=== PATIENT | male | born 1980 | race Caucasian/White ===

== ENCOUNTER 2020-09-01 22:01 | Emergency (ER) | payer SELFPAY ==
[~2020-09-01] VITALS: Ht 182.9 cm; Wt 113.4 kg
[2020-09-01 22:16] VITALS: BP 158/98
[2020-09-01 22:40] LABS: AMPHETAMINE SCREEN, URINE POSITIVE (NEGATIVE); BARBITURATE SCREEN URINE NEGATIVE (NEGATIVE); BENZODIAZEPINES SCREEN URINE NEGATIVE (NEGATIVE); CANNABINOID SCREEN, URINE NEGATIVE (NEGATIVE); COCAINE SCREEN URINE NEGATIVE (NEGATIVE); METHADONE STAT NEGATIVE (NEGATIVE); METHAMPHETAMINE SCREEN URINE S POSITIVE (NEGATIVE); OPIATE SCREEN URINE NEGATIVE (NEGATIVE); OXYCODONE STAT NEGATIVE (NEGATIVE); PROPOXYPHENE STAT NEGATIVE (NEGATIVE); TRICYCLIC ANTIDEPRESSANTS SCRE NEGATIVE (NEGATIVE)
--- NOTE | 2020-09-01 23:03 | ED Psychosocial ---
General Chief Complaint: Substance Abuse Stated Complaint: DRUG REACTION Nursing Triage Note: PT TO ROOM FS04 VIA [facility] WITH C/O USING METH AND IT MADE HIM FEEL DIFFERENT THAN THE METH HE USUALLY USES. Source: patient Exam Limitations: no limitations History of Present Illness Date Seen by Provider: September 01, 2020 Time Seen by Provider: 22:01 Initial Comments Patient is a 40-year-old male who presents with paresthesias after ingesting methamphetamines. Patient states he feels drugged and states his symptoms are different than prior symptoms. Denies headache blurred vision, chest pain palpitations, shortness of breath. Patient ingested methamphetamines 2 hours prior to ED arrival. No HI, SI, hallucinations paranoia. No other acute symptoms or complaints Timing/Duration: just prior to arrival Severity: moderate Associated Symptoms: other Allergies and Home Medications Allergies Coded Allergies: No Known Allergies (Verified Allergy, Unknown, 09/01/20) Patient Home Medication List Home Medication List Reviewed: Yes Review of Systems Constitutional: see HPI EENTM: see HPI Respiratory: see HPI Cardiovascular: see HPI Gastrointestinal: see HPI Genitourinary: see HPI Skin: see HPI Psychiatric/Neurological: See HPI All Other Systems Reviewed Negative Unless Noted: Yes Past Yoyctje-Cwyczg-Fnajru Hx Past Med/Social Hx: Reviewed Nursing Past Med/Soc Hx Patient Social History Alcohol Use: Denies Use Drug of Choice: METH Smoking Status: Current Everyday Smoker Type Used: Cigarettes 2nd Hand Smoke Exposure: Yes Recent Infectious Disease Expo: No Recent Hopitalizations: No Seasonal Allergies Seasonal Allergies: No Past Medical History Surgeries: Yes (CARPAL TUNNEL) Appendectomy Respiratory: No Cardiac: No Neurological: No Genitourinary: No Gastrointestinal: No Musculoskeletal: No Endocrine: No HEENT: No Cancer: No Psychosocial: No Integumentary: No Blood Disorders: No Physical Exam Vital Signs - First Documented 09/01/20 22:16 Temp 36.7 Pulse 100 Resp 19 B/P (MAP) 158/98 (118) O2 Delivery Room Air Capillary Refill : Less Than 3 Seconds Height, Weight, BMI Height: '" Weight: lbs. oz. kg; 33.00 BMI Method: General Appearance: WD/WN, no apparent distress, other HEENT: PERRL/EOMI, TMs normal, other Neck: full range of motion Respiratory: chest non-tender, lungs clear Cardiovascular: normal peripheral pulses, regular rate, rhythm Gastrointestinal: non tender, soft Extremities: non-tender Neurologic/Psychiatric: corrosion engineer II-XII nml as tested, no motor/sensory deficits, alert, oriented x 3 Thoughts/Hallucinations: no apparent hallucination, auditory hallucinations Lymphatic: no adenopathy Progress/Results/Core Measures Results/Orders Lab Results Laboratory Tests Test 09/01/20 22:25 Range/Units Urine Opiates Screen NEGATIVE NEGATIVE Urine Oxycodone Screen NEGATIVE NEGATIVE Urine Methadone Screen NEGATIVE NEGATIVE Urine Propoxyphene Screen NEGATIVE NEGATIVE Urine Barbiturates Screen NEGATIVE NEGATIVE Ur Tricyclic Antidepressants Screen NEGATIVE NEGATIVE Urine Phencyclidine Screen NEGATIVE NEGATIVE Urine Amphetamines Screen POSITIVE H NEGATIVE Urine Methamphetamines Screen POSITIVE H NEGATIVE Urine Benzodiazepines Screen NEGATIVE NEGATIVE Urine Cocaine Screen NEGATIVE NEGATIVE Urine Cannabinoids Screen NEGATIVE NEGATIVE My Orders Orders - JORGE RAMOS DO Drug Screen Stat (Urine) (09/01/20 22:22) Vital Signs/I&O 09/01/20 22:16 Temp 36.7 Pulse 100 Resp 19 B/P (MAP) 158/98 (118) O2 Delivery Room Air Blood Pressure Mean: 118 Departure Communication (Admissions) Drug screen/presentation consistent with methamphetamine use. Recommendations drug rehab and outpatient follow-up. P Impression Primary Impression: Methamphetamine use Disposition: 01 HOME, SELF-CARE Condition: Stable Departure-Patient Inst. Referrals: NO,LOCAL PHYSICIAN (PCP) Primary Care Physician Patient Instructions: ALCOHOL AND SUBSTANCE ABUSE Add. Discharge Instructions: Please follow-up with outpatient drug and alcohol rehab counselor. All discharge instructions reviewed with patient and/or family. Voiced understanding. JORGE RAMOS DO September 01, 2020 23:02
== END 2020-09-01 23:10 | disposition home or self-care (01) ==
LOC: ER FS 22:20
DX: F15.90 Other stimulant use, unspecified, uncomplicated (principal); F17.210 Nicotine dependence, cigarettes, uncomplicated
CPT/HCPCS: 80306; 99283

== ENCOUNTER 2020-09-26 04:23 | Emergency (ER) | payer OTHER ==
[~2020-09-26] VITALS: Ht 182.9 cm; Wt 109.0 kg
[2020-09-26 04:31] VITALS: BP 160/102
--- NOTE | 2020-09-26 04:42 | ED Cough/URI ---
General Chief Complaint: Chest Wall Stated Complaint: CP,DIZZY,DRY HEAVING Nursing Triage Note: PT AMBULATE TO ROOM FS01 WITH C/O CHEST WALL PAIN WHEN TAKING A DEEP BREATH. PT REPORTS GETTING DIZZY WHEN THIS OCCURS. PT REPORTS COUGH AND HAVING A LOT OF MUCUS. Sepsis Screen: No Definite Risk Source: patient History of Present Illness Date Seen by Provider: Sep 26, 2020 Time Seen by Provider: 04:30 Initial Comments 40-year-old male presents with cough for the past 2 months, worse tonight after work. 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 No shortness of air or chest pain at rest, does have some pain in his chest worse with cough and deep breathing. No significant past medical history and on no medication Allergies and Home Medications Allergies Coded Allergies: No Known Allergies (Verified Allergy, Unknown, 09/01/20) Patient Home Medication List Home Medication List Reviewed: Yes Review of Systems Review of Systems Constitutional: No fever, No malaise, No weakness EENTM: no symptoms reported Respiratory: cough; No hemoptysis, No orthopnea, No short of breath, No stridor; wheezing Cardiovascular: see HPI; No edema, No palpitations, No syncope Gastrointestinal: No abdominal pain, No nausea, No vomiting Musculoskeletal: No back pain, No joint pain, No muscle pain Skin: No change in color, No other Psychiatric/Neurological: Denies Headache, Denies Numbness, Denies Paresthesia Past Zhcjdzb-Rudxkt-Iuoibn Hx Past Med/Social Hx: Reviewed Nursing Past Med/Soc Hx Patient Social History Alcohol Use: Denies Use Drug of Choice: METH Smoking Status: Current Everyday Smoker Type Used: Cigarettes 2nd Hand Smoke Exposure: Yes Recent Infectious Disease Expo: No Recent Hopitalizations: No Seasonal Allergies Seasonal Allergies: No Past Medical History Surgeries: Yes (CARPAL TUNNEL) Appendectomy Respiratory: No Cardiac: No Neurological: No Genitourinary: No Gastrointestinal: No Musculoskeletal: No Endocrine: No HEENT: No Cancer: No Psychosocial: No Integumentary: No Blood Disorders: No Physical Exam Vital Signs - First Documented 09/26/20 04:31 Temp 36.7 Pulse 87 Resp 22 B/P (MAP) 160/102 (121) O2 Delivery Room Air Capillary Refill : Less Than 3 Seconds Height: '" Weight: lbs. oz. kg; 32.00 BMI Method: General Appearance: WD/WN, no apparent distress HEENT: PERRL/EOMI, normal ENT inspection Neck: non-tender, supple Respiratory: chest non-tender, lungs clear, normal breath sounds, no res piratory distress, no accessory muscle use Cardiovascular: regular rate, rhythm, no edema, no JVD Gastrointestinal: normal bowel sounds, non tender, soft Extremities: normal range of motion, non-tender, normal inspection Neurologic/Psychiatric: no motor/sensory deficits, alert, normal mood/affect Skin: normal color, warm/dry Progress/Results/Core Measures Suspected Sepsis Recent Fever Within 48 Hours: No Infection Criteria Present: None New/Unexplained Altered Menta: No Sepsis Screen: No Definite Risk SIRS Temperature: Pulse: 87 Respiratory Rate: 22 Blood Pressure 160 /102 Mean: 121 Results/Orders My Orders Orders - LOVESTPEYTON SOTO DO Chest 1 View Ap/Pa Only (09/26/20 04:32) Albuterol/Ipra Inhalation Soln (Duoneb I (09/26/20 04:45) Prednisone Tablet (Deltasone Tablet) (09/26/20 04:45) Svn Small Volume Nebulizer (09/26/20 04:42) Vital Signs/I&O 09/26/20 04:31 Temp 36.7 Pulse 87 Resp 22 B/P (MAP) 160/102 (121) O2 Delivery Room Air Capillary Refill : Less Than 3 Seconds Blood Pressure Mean: 121 Departure Impression Primary Impression: Bronchitis Additional Impression: Chest wall pain Disposition: 01 HOME, SELF-CARE Condition: Improved Departure-Patient Inst. Decision time for Depature: 04:46 Referrals: NO,LOCAL PHYSICIAN (PCP/Family) Primary Care Physician Patient Instructions: Acute Bronchitis, Adult (DC) Add. Discharge Instructions: see your PCP in 5 to 7 days if not improving, sooner if worse. All discharge instructions reviewed with patient and/or family. Voiced understanding. Scripts Dextromethorphn/Acetaminoph/Cp (Vicks Nyquil Cold & Flu Liquid) 354 Ml Liquid 10 ML PO HS PRN for COUGH, #1 Prov: ROVENSTINEERROLPEYTON L DO 09/26/20 Prednisone (Prednisone) 50 Mg Tab 50 MG PO DAILY, #7 TAB Prov: ROVENSTINEERROLPEYTON L DO 09/26/20 Doxycycline Hyclate (Doxycycline Hyclate) 100 Mg Tablet 100 MG PO BID, #20 TAB 0 Refills Prov: PEYTON VALERO DO 09/26/20 Albuterol Sulfate (PROAIR HFA) 1 Puff Puff 2 PUFF IH Q4H for Cough, #1 PUFF 1 Refill 1 PUFF = 90 MCG Prov: PEYTON VALERO DO 09/26/20 Work/School Note: Work Release Form Date Seen in the Emergency Department: Sep 26, 2020 Return to Work: Sep 27, 2020 Restrictions: No Restrictions PEYTON VALERO DO Sep 26, 2020 04:42
[2020-09-26] MEDS ORDERED: RT-ALBUTEROL/IPRATROPIUM 3 ML (DUONEB) VIAL INH ONE (04:45)
[2020-09-26] MEDS ORDERED: predniSONE 20 MG TAB PO ONE (04:45)
[2020-09-26] MEDS ORDERED: RT-ALBUINH IH (04:51)
[2020-09-26] MEDS ORDERED: DOXY100T2 PO (04:51)
[2020-09-26] MEDS ORDERED: PRD50T PO (04:51)
[2020-09-26] MEDS ORDERED: DEXT354L PO (04:51)
--- NOTE | 2020-09-26 08:24 | Diagnostic Imaging Report ---
EXAMINATION: AP upright portable chest INDICATION: Cough. Chest pain. COMPARISON: None available. FINDINGS: Low lung volumes are demonstrated. There is moderate elevation the right hemidiaphragm. The lungs are clear and the pulmonary vasculature is normal. No pneumothorax or large pleural effusion. Heart size and mediastinal contours are normal. No acute osseous abnormality is identified. IMPRESSION: No radiographic evidence of acute chest disease. Dictated by: Dictated on workstation # [id number]
== END 2020-09-26 04:59 | disposition home or self-care (01) ==
LOC: EDUNIT# 04:23 → ER FS 04:28
DX: J40 Bronchitis, not specified as acute or chronic (principal); R07.89 Other chest pain; F17.210 Nicotine dependence, cigarettes, uncomplicated
CPT/HCPCS: 71045

== ENCOUNTER 2020-10-14 20:55 | Emergency (ER) | payer OTHER ==
[~2020-10-14] VITALS: Ht 185.4 cm; Wt 107.7 kg
[~2020-10-14 20:55] MED LIST: DEXT354L PO; DOXY100T2 PO; PRD50T PO; RT-ALBUINH IH
--- NOTE | 2020-10-14 21:05 | ED General ---
General Stated Complaint: SOB | NUMBNESS IN ARMS | UNABLE TO FOCUS Source of Information: Patient Exam Limitations: No Limitations History of Present Illness Date Seen by Provider: Oct 14, 2020 Time Seen by Provider: 21:04 Initial Comments 40-year-old male presents with cough and intermittent mucous in his chest over the past 1 month. Patient stated that he quit doing meth in August of this year and started using KRATOM, since then. Now using it 3 times daily. Today felt like he couldn't focus and felt shaky. On arrival feeling better. Denies fever or chills. 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 Allergies and Home Medications Allergies Coded Allergies: No Known Allergies (Verified Allergy, Unknown, 09/01/20) Home Medications Albuterol Sulfate 1 Puff Puff, 2 PUFF IH Q4H 1 PUFF = 90 MCG Prescribed by: PEYTON VALERO on 09/26/20450 Dextromethorphn/Acetaminoph/Cp 354 Ml Liquid, 10 ML PO HS PRN for COUGH Prescribed by: EPYTON VALERO on 09/26/20450 Doxycycline Hyclate 100 Mg Tablet, 100 MG PO BID Prescribed by: PEYTON VALERO on 09/26/20450 Prednisone 50 Mg Tab, 50 MG PO DAILY Prescribed by: PEYTON VALERO on 09/26/20450 Patient Home Medication List Home Medication List Reviewed: Yes Review of Systems Review of Systems Constitutional: No fever, No malaise, No weakness EENTM: nose congestion; No hearing loss, No ear pain, No hoarseness, No mouth swelling, No nose pain, No throat pain, No throat swelling Respiratory: cough; No hemoptysis, No orthopnea, No short of breath Cardiovascular: No chest pain, No edema, No palpitations, No syncope Gastrointestinal: No abdominal pain, No loss of appetite, No nausea, No vomiting Musculoskeletal: No back pain, No joint pain Skin: No change in color, No rash Past Pkfookj-Kpyugs-Hgsizb Hx Patient Social History Tobacco Use?: Yes Substance use?: Yes Substance type: Methamphetamine (quit August 2020), Other (Kratom) Seasonal Allergies Seasonal Allergies: No Past Medical History Surgeries: Yes (CARPAL TUNNEL) Appendectomy Respiratory: No Cardiac: No Neurological: No Genitourinary: No Gastrointestinal: No Musculoskeletal: No Endocrine: No HEENT: No Cancer: No Psychosocial: No Integumentary: No Blood Disorders: No Physical Exam Vital Signs Vital Signs - First Documented 10/14/20 21:11 Temp 37.0 Pulse 101 Resp 18 B/P (MAP) 173/97 (122) Pulse Ox 98 O2 Delivery Room Air Capillary Refill : Height, Weight, BMI Height: '" Weight: lbs. oz. kg; 32.00 BMI Method: General Appearance: No Apparent Distress, WD/WN Eyes: Bilateral Eye Normal Inspection, Bilateral Eye PERRL, Bilateral Eye EOMI HEENT: PERRL/EOMI, Normal ENT Inspection Neck: Full Range of Motion, Non Tender, Supple Respiratory: Chest Non Tender, Lungs Clear, Normal Breath Sounds, No Accessory Muscle Use, No Respiratory Distress Cardiovascular: Regular Rate, Rhythm, No Edema, No JVD Gastrointestinal: Non Tender, Soft Neurologic/Psychiatric: Alert, Oriented x3, No Motor/Sensory Deficits, Normal Mood/Affect Skin: Normal Color, Warm/Dry Progress/Results/Core Measures Suspected Sepsis SIRS Temperature: Pulse: Respiratory Rate: Blood Pressure / Mean: Results/Orders Vital Signs/I&O 10/14/20 21:11 Temp 37.0 Pulse 101 Resp 18 B/P (MAP) 173/97 (122) Pulse Ox 98 O2 Delivery Room Air Capillary Refill : Departure Impression Primary Impression: Bronchitis Additional Impression: Substance abuse, daily use Disposition: 01 HOME, SELF-CARE Condition: Stable Departure-Patient Inst. Decision time for Depature: 21:20 Referrals: NO,LOCAL PHYSICIAN (PCP/Family) Primary Care Physician Patient Instructions: Bronchitis, Adult ED Add. Discharge Instructions: Establish care with a local PCP, family physician for your health and long-term care. Buy some nasal saline spray - and spray in each nostril 4 times daily. Take some Mucinex and drink 6 glasses of water daily. Wean yourself off the Kratom over the next month PEYTON VALERO DO Oct 14, 2020 21:05
[2020-10-14 21:11] VITALS: BP 173/97
== END 2020-10-14 21:26 | disposition home or self-care (01) ==
LOC: EDUNIT# 20:55 → ER FS 20:58
DX: J40 Bronchitis, not specified as acute or chronic (principal); F19.10 Other psychoactive substance abuse, uncomplicated; Z79.52 Long term (current) use of systemic steroids
CPT/HCPCS: 99281

== ENCOUNTER 2021-12-16 00:51 | Emergency (ER) | payer OTHER ==
[~2021-12-16] VITALS: Ht 172.7 cm; Wt 111.7 kg
[2021-12-16] MEDS ORDERED: EPINEPHrine 0.1 MG/ML 10 ML (HOSPIRA) SYR INJ ONE (00:56)
[2021-12-16] MEDS ORDERED: ROCURONIUM 10 MG/ML 5 ML SYRINGE IV ONE (00:56)
[2021-12-16] MEDS ORDERED: MIDAZOLAM 5 MG/5 ML (VERSED) VIAL INJ ONE (00:56)
[2021-12-16] MEDS ORDERED: HEParin 1000 UNIT/ML (10ML VIAL) FOR BOLUS IV PRN (01:00)
[2021-12-16] MEDS ORDERED: ASPIRIN 325 MG (5 GR) TABLET PO ONE (01:00)
[2021-12-16] MEDS ORDERED: HEParin DRIP 25000 UNIT/500ML 500 ML IV SCH (01:00)
[2021-12-16] MEDS ORDERED: NITROGLYCERIN 2% OINT 1 GM UNIT DOSE PACKET TOP STA (01:00)
[2021-12-16] MEDS ORDERED: fentaNYL INJ 100 MCG/2 ML AMP ONE (01:18)
[2021-12-16] MEDS ORDERED: NITRO DRIP 25000 MCG/D5W 0 ML IV ONE (01:19)
[2021-12-16] MEDS ORDERED: MIDAZOLAM 2 MG/2 ML (VERSED) VIAL ONE (01:19)
[2021-12-16] MEDS ORDERED: HEParin (CATH LAB) 0 ML IV ONE (01:19)
[2021-12-16] MEDS ORDERED: HEParin 1000 UNIT/ML (10ML VIAL) FOR BOLUS ONE (01:19)
[2021-12-16] MEDS ORDERED: NS IV 1000 ML 0 ML ONE (01:19)
[2021-12-16] MEDS ORDERED: LIDOCAINE 1% INJ 20 ML VIAL ONE (01:19)
--- NOTE | 2021-12-16 01:58 | ED Chest Pain ---
General Chief Complaint: Code Blue Stated Complaint: CHEST PAINS Source: patient NPO since: 1999 History of Present Illness Date Seen by Provider: Dec 16, 2021 Time Seen by Provider: 00:52 Initial Comments 41-year-old male presenting with complaints of chest pain that started around 11 or 11:30 PM. He states that it is a sharp pain in the middle of his chest. He points to his sternum when he complains about the sharp pain. He states it hurts more when he takes a deep breath. He has a history of hypertension but denies ever having any heart problems in the past. He stated he did not know of any cardiac problems for his family. He denies having nausea or vomiting. He did have diaphoresis. He denies taking any medications for his pain and symptoms prior to coming to the emergency department. He drove himself to the emergency department from [place]. Timing/Duration: 1-3 hours, constant Severity/Quality: severe, sharp Location: substernal Radiation: no radiation Activities at Onset: rest Prior CP/Workup: no prior chest pain Modifying Factors: worse with breathing (Deep breaths made him have more sharp pain) ASA po GASTROENTEROLOGY NURSE: No NTG SL GASTROENTEROLOGY NURSE: No Associated Symptoms: No abdominal pain, No back pain; diaphoresis, dizziness; No edema, No fatigue, No fever/chills, No headache, No heartburn, No nausea/vomiting, No rash, No shortness of breath, No swelling/lump in chest, No syncope Allergies and Home Medications Allergies Coded Allergies: No Known Allergies (Verified Allergy, Unknown, 09/01/20) Patient Home Medication List Home Medication List Reviewed: Yes Albuterol Sulfate (Proair Hfa) 1 Puff Puff, 2 PUFF IH Q4H Prescribed by: PEYTON VALERO on 09/26/20450 Dextromethorphn/Acetaminoph/Cp (Vicks Nyquil Cold & Flu Liquid) 354 Ml Liquid, 1 0 ML PO HS PRN for COUGH Prescribed by: PEYTON VALERO on 09/26/20450 Doxycycline Hyclate (Doxycycline Hyclate) 100 Mg Tablet, 100 MG PO BID Prescribed by: PEYTON VALERO on 09/26/20450 Prednisone (Prednisone) 50 Mg Tab, 50 MG PO DAILY Prescribed by: PEYTON VALERO on 09/26/20450 Review of Systems Review of Systems Constitutional: diaphoresis EENTM: No Symptoms Reported Respiratory: No Symptoms Reported Cardiovascular: See HPI Gastrointestinal: No Symptoms Reported Genitourinary: No Symptoms Reported Musculoskeletal: no symptoms reported Skin: see HPI Psychiatric/Neurological: No Symptoms Reported Endocrine: No Symptoms Reported Hematologic/Lymphatic: Denies Blood Clots Past Dwqwptc-Tsarfl-Ibpmqf Hx Patient Social History Tobacco Use?: Yes Substance use?: Yes Substance type: Methamphetamine, Other (Kratom) Seasonal Allergies Seasonal Allergies: No Past Medical History Surgery/Hospitalization HX: Hypertension, psychosis, polysubstance abuse Surgeries: Yes (CARPAL TUNNEL) Appendectomy Respiratory: No Cardiac: No Neurological: No Genitourinary: No Gastrointestinal: No Musculoskeletal: No Endocrine: No HEENT: No Cancer: No Psychosocial: Yes Integumentary: No Blood Disorders: No Physical Exam Vital Signs Vital Signs - First Documented 12/16/21 02:33 Temp 37.0 Pulse 96 Resp 18 B/P (MAP) 181/110 (133) Pulse Ox 96 O2 Delivery Room Air Capillary Refill : Height, Weight, BMI Height: '" Weight: lbs. oz. kg; 31.00 BMI Method: General Appearance: Anxious, Obese HEENT: PERRL/EOMI, Moist Mucous Membranes, Other (Widespread dental decay) Neck: Full Range of Motion, Normal Inspection, Non Tender, Supple Respiratory: Chest Non Tender, Lungs Clear, Normal Breath Sounds, No Accessory Muscle Use, No Respiratory Distress Cardiovascular: Regular Rate, Rhythm, Normal Peripheral Pulses Gastrointestinal: Normal Bowel Sounds, No Pulsatile Mass, Non Tender, Soft Rectal: Deferred Extremity: Normal Capillary Refill, Normal Inspection, No Pedal Edema Neurologic/Psychiatric: Alert, Oriented x3, transportation design engineer II-XII Norm as Tested Skin: Diaphoresis Procedures/Interventions Reason for Intubation: To secure airway during code Date of ETT Placement: Dec 16, 2021 Time of ETT Placement: 01:23 Intubation Method: orotracheal Tube Size: 7.5 Medications: Rocuronium (50 mg), Versed (10 mg) Positive End Tide CO2: Yes Breath Sounds after Intubation: bilateral-equal Intubation Complications: oral-unsuccessful attempt (Initial attempt at oral intubation unsuccessful due to anterior airway and unable to pass ETT, 2nd attempt the Arash Vision scope did not give a clear view, Successfully intubated on 3rd attempt with Mac4 blade), O2 saturation decreased Post Intubation Xray: No CPR: CPR initiated when patient had seizure like activity and then went pulseless. The monitor appeared to be ventricular fibrillation but before pads could be placed for delivering a shock he went into Pulseless electrical activity. He was given Epinephrine and cardiac compressions were continued while I worked on securing an airway. He was having ventilations with Bag Valve Mask and 15 Lpm Oxygen. Despite repeated doses of epinephrine and using a Gatito Compression device to deliver cardiac compressions, we were never able to obtain ROSC. Using bedside ultrasound no cardiac activity was seen and he had PEA going to asystole on the monitor so he was pronounced at 0135. Rhythm: V-Fibrillation Critical Care Note Critical Care Total Time (minutes) 60 minutes Date of : Dec 16, 2021 Time of : 01:35 Progress 60 minutes of critical care time was spent with the patient. Time excludes separately billable procedures. Time was spent obtaining history from patient and from medical record, ordering tests and reviewing results, ordering interventions and reviewing response, discussion with consultants, documentation in the chart. Patient was shown to be having a myocardial infarction on arrival to the emergency department. Time was spent trying to stabilize and obtain r eturn of spontaneous circulation. Progress/Results/Core Measures Results/Orders My Orders Orders - DAVID OLGUIN MD Cbc With Automated Diff (12/16/21:00) Magnesium (12/16/21:00) Chest 1 View Ap/Pa Only (12/16/21:00) Ekg Tracing (12/16/21:00) Comprehensive Metabolic Panel (12/16/21:00) Myoglobin Serum (12/16/21:00) Protime With Inr (12/16/21:00) Partial Thromboplastin Time (12/16/21:00) O2 (12/16/21:00) Monitor-Rhythm Ecg Trace Only (12/16/21:00) Aspirin Tablet (Aspirin Tablet) (12/16/21:00) Ed Iv/Invasive Line Start (12/16/21:00) Troponin I Fs (12/16/21:00) Probnp Fs (12/16/21:00) Heparin Drip [id number] Unit/500ml (Heparin (9/13/22 01:00) Heparin (Bolus Per Protocol) (Heparin (B (12/16/21 01:00) Initiate Heparin Acs Protocol (12/16/21 01:00) Nitroglycerin Ointment (Nitrobid Ointme (12/16/21 01:00) Vital Signs/I&O 12/16/21 02:33 Temp 37.0 Pulse 96 Resp 18 B/P (MAP) 181/110 (133) Pulse Ox 96 O2 Delivery Room Air Progress Progress Note : Progress Note [address] elevation the patient was informed that he was having a heart attack and we would need to give him aspirin and me dications to help with his blood pressure and heart as well as get him emergently to the [facility] in [place]. Patient was agreeable to this. [address] Vu the on-call buffing wheel former machine about the patient. Advised of the ST elevation and information on the patient. He requested heparin bolus aspirin and metoprolol and to emergently get him to the [facility] in [place]. 0100 shortly after speaking with Dr. Vu patient had seizure activity. 1:03 AM he had no pulse and agonal respirations. At that time he was having PEA on the monitor. Chest compressions were started and she was given a dose of epinephrine. It appeared that he might be having ventricular fibrillation once the chest compressions were started. Before pads could be placed on the patient and a shock delivered he was showing PEA and so the Gatito autocompression device was applied to continue chest compressions while I worked on securing an airway for the patient. He was given versed 10 mg for both his seizure activity and premedication for intubation. He was also given Rocuronium 50 mg for premedication for intubation. When I initially attempted to intubate the patient he had a large amount of blood in his mouth from biting his tongue during seizure activity. This was suctioned out of the way and vocal cords visualized but were anterior and first attempt at intubation was unsuccessful so he was continued on bag valve mask ventilations. Then 2nd attempt was with Arash Vision scope but unable to get screen to work. 3rd attempt with Mac 4 blade and orotracheal approach the 7.5 ETT was placed between the vocal cords. Patient was ventilated with 15 Lpm O2 and BVM ventilations between attempts. On rechecks of his pulse and rhythm he never had return of perfusing rhythm or palpable pulse. After 32 minutes of CPR and 5 mg of epinephrine I used bedside ultrasound to look for any heart activity and none was seen. He had PEA to asystole on the monitor and it was felt that it was futile to continue to try as he had no heart activity and no circulating rhythm. He was pronounced at 0135. From review of his chart he had previous visits for Methamphetamine abuse and Kratom as well. 0244 I spoke with [facility], Dr. Bo. He did recommend autopsy as the patient was 41 with no prior cardiac disease. He requested I contact [facility] for an autopsy. 0253 I called the office number for [facility] and then sent a page to the electronics installer muck operator. Initial ECG Impression Date: Dec 16, 2021 Initial ECG Impression Time: 00:54 Initial ECG Rate: 97 Initial ECG Rhythm: Normal Sinus Initial ECG Comparisson: No Previous ECG Available Comment Sinus rhythm with occasional PVCs and a heart rate of [address] interval 170 ms. QT interval 376 ms with a QTc interval 431 ms. Q waves in the inferior leads and ST elevation in the anterolateral leads. No prior tracing available for comparison. Departure Impression Primary Impression: Acute anterolateral myocardial infarction Additional Impressions: Unsuccessful cardiopulmonary resuscitation Cardiopulmonary arrest Disposition: 20 (134) Condition: Departure-Patient Inst. Referrals: NO,LOCAL PHYSICIAN (PCP/Family) Primary Care Physician DAVID OLGUIN MD Dec 16, 2021 01:58
[2021-12-16 02:33] VITALS: BP 181/110
== END 2021-12-16 05:29 | disposition expired ==
LOC: EDUNIT# 00:52 → ER FS 00:55
DX: I46.9 Cardiac arrest, cause unspecified (principal); I21.09 ST elevation (STEMI) myocardial infarction involving other coronary artery of anterior wall; E66.9 Obesity, unspecified; Z68.31 Body mass index [BMI] 31.0-31.9, adult
CPT/HCPCS: 31500; 93005; 93041; 99291